=== PATIENT | male | born 1980 | race Caucasian/White ===

== ENCOUNTER 2016-07-27 11:07 | Emergency (ER) | payer BC ==
--- NOTE | ~2016-07-27 | US67 ---
[facility] A Service of [facility] RADIOLOGY TEXT RESULTS PATIENT: PROMISE BIRMINGHAM LOCATION: [facility] : [birth year] UNIT #: [id number] AGE: [address]: Shane Black MD SEX: M ORDER DR: [id number] [facility]. [place], [place] [address] [id number] MR#: [id number] Acc #: [id number] NAME: PROMISE BIRMINGHAM : 1980 SEX: M STUDY DATE/TIME: 07/27/2016 13:46 UNIT: [facility] ROOM: STUDY DESCRIPTION: US Gallbladder Attending Physician: Shane Black M.D. Ordering Physician: Shane Black M.D. Primary Care Physician: Dewayne Saenz M.D. MEDICAL IMAGING REPORT This report is preliminary unless electronic signature is present EXAM Gallbladder ultrasound 07/27/2016 HISTORY Pain right arm pain, nausea on and off for 2 months. TECHNIQUE Real-time ultrasonography of the right quadrant performed. COMPARISON STUDIES CT abdomen and pelvis 06/20/2016. FINDINGS Pancreas unremarkable. Some portions of pancreatic tail obscured by bowel gas artifact. Portal vein and inferior vena cava are patent. The liver is normal in size, contour and echotexture. Slightly increased overall parenchymal echogenicity suggesting fatty infiltration. No suspicious focal abnormality. The right kidney measures 11.51 cm in greatest length. There is no hydronephrosis, nephrolithiasis, cystic or solid mass lesion or perinephric fluid collection. The gallbladder normal in volume with no gallbladder wall thickening, pericholecystic fluid or gallstone. Common bile duct measures 1-2 mm in diameter. No abnormal fluid collections are seen. IMPRESSION 1. Fatty infiltration of the liver without focal parenchymal abnormality seen. Liver otherwise unremarkable. 2. Gallbladder, right kidney, and visualized portions of pancreas normal in appearance. Some portions of pancreatic tail are obscured by bowel gas artifact. Pancreas appeared normal on CT examination June 2016. If there is acute concern regarding pancreas, it could be reevaluated with repeat CT examination. [facility] A Service of [facility] RADIOLOGY TEXT RESULTS PATIENT: PROMISE BIRMINGHAM LOCATION: [facility] : 82 UNIT #: [id number] AGE: [address]: Shane Black MD SEX: M ORDER DR: Dictated by... Manuel Valentine M.D. THIS IS AN ELECTRONICALLY VERIFIED REPORT Manuel Valentine M.D. at 07/28/2016 5:57 PM ED/marine TD: 07/27/2016 18:04 JOB #: [id number] MEDICAL IMAGING REPORT Page 1 of 1 COPY
[~2016-07-27 11:07] MED LIST: LORTAB 5-325 M1 EACH PO; NO MEDICATIONS
[2016-07-27 12:36] LABS: BASOPHIL% 0.7 % (0-2.5); EOSINOPHIL# 0.2 X10e3 (0-0.7); EOSINOPHIL% 2.3 % (0.0-7.0); HEMATOCRIT 43.8 % (38.0-50.0); HEMOGLOBIN 14.6 gm/dL (13.0-16.0); LYMPHOCYTE# 1.7 X10e3 (1.0-3.5); LYMPHOCYTE% 23.6 % (17.0-45.0); MEAN CELL VOLUME 87.9 FL (83-96); MEAN CORPUSCULAR HEMOGLOBIN 29.3 PG (28-34); MEAN CORPUSCULAR HGB CONC 33.3 g/dL (30-36); MEAN PLATELET VOLUME 7.8 FL (6.5-11.5); MONOCYTE# 0.7 X10e3 (0-1.0); MONOCYTE% 9.7 % (3.0-12.0); NEUTROPHIL# 4.5 X10e3 (1.5-7.1); NEUTROPHIL% 63.7 % (40-75); PLATELET COUNT 269 X10e3 (140-420); RED BLOOD COUNT 4.99 X10e (3.90-5.60); RED CELL DISTRIBUTION WIDTH 13.1 % (11.0-15.5)
[2016-07-27 12:44] LABS: DIFF IND NO
[2016-07-27 13:01] LABS: ALBUMIN SERUM 4.5 g/dL (3.5-5.0); BILIRUBIN, DIRECT 0.1 mg/dL (0.0-0.2); BILIRUBIN,INDIRECT 0.7 mg/dL (0.0-0.9); BILIRUBIN,TOTAL 0.8 mg/dL (0.2-2.0); CALCIUM SERUM 9.2 mg/dL (8.4-10.2); GLOM FILT RATE Estimated 97.1 mL/min (>60); PROTEIN TOTAL SERUM 7.6 g/dL (6.0-8.3)
== END 2016-07-27 14:30 | disposition home or self-care (01) ==
LOC: CED 11:07
PROVIDERS: Emergency Medicine
DX: R10.13 Epigastric pain (principal); Z79.899 Other long term (current) drug therapy
CPT/HCPCS: 36415; 76705; 80048; 80076; 82150; 83690; 85025; 96374; 99284; J2270; J2405